=== PATIENT | male | born 1995 | race Caucasian/White ===

== ENCOUNTER 2017-09-13 17:07 | Emergency (ER) | payer SELFPAY ==
[2017-09-13 17:22] VITALS: TEMP 98.3
--- NOTE | 2017-09-13 18:03 | ED.PDOC ---
History of Present Illness - General Chief Complaint: General Stated Complaint: R shoulder discomfort Time Seen by Provider: 09/13/17 18:03 Source: patient Exam Limitations: no limitations - History of Present Illness Initial Comments: leonie Shukla 21 y/o male stated that he had been having achy right shoulder and right side of his neck since yesterday which comes and goes presently not hurting here in er.Denies history of trauma or old injury to involved area. Occurred: yesterday Pain - Upper Extremity: moderate: Shoulder, right Method of Injury: unknown Improving Factors: rest Worsening Factors: movement Allergies/Adverse Reactions: Allergies NO KNOWN ALLERGY Allergy (Verified 07/23/16 02:15) Home Medications: Ambulatory Orders NK [NK] 09/13/17 Review of Systems - Review of Systems Constitutional: States: no symptoms reported EENTM: States: no symptoms reported Respiratory: States: no symptoms reported Cardiology: States: no symptoms reported Musculoskeletal: States: see HPI Past Medical History (General) - Patient Medical History Hx Stroke: No Hx Congestive Heart Failure: No Hx Diabetes: No Surgical History: no surgical history - Vaccination History Hx Tetanus, Diphtheria Vaccination: No Hx Influenza Vaccination: No Hx Pneumococcal Vaccination: No - Social History Hx Tobacco Use: Yes Hx Alcohol Use: Yes - occasionally Hx Substance Use: No Family Medical History - Family History Mother Family History: No Known Living Status: Still Living Physical Exam - Physical Exam General Appearance: Alert, Comfortable, No apparent distress Eyes, Ears, Nose, Throat Exam: PERRL/EOMI, normal ENT inspection, pharynx normal Neck: non-tender, full range of motion, supple, other - no carotid bruits noted Cardiovascular/Respiratory: regular rate, rhythm, normal peripheral pulses Abdominal Exam: non-tender, no organomegaly Back Exam: no CVA tenderness, no vertebral tenderness Shoulder Exam: normal inspection, non-tender, no evidence of injury, normal ROM Elbow/Forearm Exam: no evidence of injury Wrist Exam: non-tender Hand Exam: no evidence of injury Neuro/Tendon: normal sensation, normal motor functions Mental Status: alert, oriented x 3 Skin Exam: normal color, warm/dry Progress - Progress Progress: 09/13/17 18:21 Vital Signs - 8 hr 09/13/17 17:20 Temperature 98.3 F Pulse Rate [ 90 Right Radial] Respiratory 20 Rate Blood Pressure 129/101 [Left Arm] O2 Sat by Pulse 99 Oximetry - EKG/XRAY/CT XRAY: c-spine - no acute abnormalities noted Xray Comments: right shoulder -nothing acute Departure - Departure Clinical Impression: Neck pain on right side Shoulder pain, right Qualifiers: Chronicity: unspecified Qualified Code(s): M25.511 - Pain in right shoulder Time of Disposition: 18:52 Disposition: Discharge to Home or Self Care Condition: Good Departure Forms: ED Discharge - Pt. Copy, Patient Portal Self Enrollment Instructions: DI for Shoulder Pain, DI for Neck Pain Referrals: Rafaela Taylor NP [Primary Care Provider] - 1-2 Weeks Home Medications: Ambulatory Orders NK [NK] 09/13/17 Additional Instructions: May take over the counter Aleve 1-2 tablets am/pm for pain follow up with primary md 09/16/2017 call for appointment
--- NOTE | 2017-09-13 18:27 | RAD ---
EXAM: Cervical Spine,3 Views CLINICAL INDICATION: 21-year-old male with neck an shoulder discomfort. TECHNIQUE: Three views of the cervical spine were obtained in AP, lateral, and odontoid projections. COMPARISON: None. FINDINGS: The dens is not well seen secondary to overlapping dental structures. The cervical spine is visualized to the top of C7. Alignment of the cervical spine is within normal limits. There is no subluxation or fracture deformity. Morphology of the vertebral bodies and intervertebral disc spaces is within normal limits. The prevertebral soft tissues are within normal limits. The airway is patent. Limited visualization of the lung apices is within normal limits. The remainder of the visualized bones are within normal limits. IMPRESSION: No acute radiographic abnormality. If patient's pain persists, repeat radiographs in 7 to 10 days or MRI cervical spine may be considered as clinically indicated. Electronically signed by: Daniella Mon MD 09/13/2017 6:25 PM CDT Workstation: [id number]
--- NOTE | 2017-09-13 18:27 | RAD ---
EXAM: Shoulder,Right 2 or More Views CLINICAL INDICATION: 21-year-old male with shoulder discomfort. TECHNIQUE: Two views RIGHT shoulder were obtained in AP, internal/external rotation projections. COMPARISON: None. FINDINGS: There is no fracture or dislocation. The joint spaces are preserved. No soft tissue abnormalities are seen. IMPRESSION: No acute radiographic abnormality. Electronically signed by: Daniella Mon MD 09/13/2017 6:26 PM CDT Workstation: [id number]
[2017-09-13] MEDS ORDERED: ORPHENADRINE CITRATE 30 MG/ML AMP IM ONE (18:50)
[2017-09-13] MEDS ORDERED: KETOROLAC TROMETHAMINE INJ 30 MG/ML VIAL IM ONE (18:50)
[2017-09-13 19:20] VITALS: BP 118/78; O2SAT 98
== END 2017-09-13 19:20 | disposition home or self-care (01) ==
LOC: ER 17:07
DX: M25.511 Pain in right shoulder (principal); M54.2 Cervicalgia; Z87.891 Personal history of nicotine dependence
CPT/HCPCS: 72040; 73030; J1885; J2360

== ENCOUNTER 2017-12-04 21:22 | Emergency (ER) | payer SELFPAY ==
--- NOTE | 2017-12-04 22:02 | ED.PDOC ---
History of Present Illness - General Chief Complaint: Back Pain or Injury Stated Complaint: fall with back and abd pain Time Seen by Provider: 12/04/17 21:32 Source: patient Exam Limitations: no limitations - History of Present Illness Initial Comments: Tom Shukla 21 y/o male stated he fell off a 6 foot ladder yesterday afternoon 12/03/17 landed on his back on top of a riding mower has upper back and shoulder pain left side one hour after incident as well as soreness left forearm.Denies head /hip chest injuries or pain.He stated pet dog was trying to climb ladder then wobbled and made the ladder collapsed while installing a camera on their neighbors house Occurred: yesterday Severity: moderate Injuries/Pain Location: upper extremity Reason for Fall: other - see hpi Improving Factors: rest Worsening Factors: movement Associated Symptoms (Fall): denies symptoms Allergies/Adverse Reactions: Allergies NO KNOWN ALLERGY Allergy (Verified 12/04/17 21:37) Home Medications: Ambulatory Orders NK [NK] 09/13/17 Review of Systems - Review of Systems Constitutional: States: no symptoms reported EENTM: States: no symptoms reported Respiratory: States: no symptoms reported Cardiology: States: no symptoms reported Genitourinary: States: no symptoms reported Musculoskeletal: States: see HPI Neurological: States: no symptoms reported All other Systems: Reviewed and Negative, No Change from Baseline Past Medical History (General) - Patient Medical History Hx Seizures: No Hx Stroke: No Hx Congestive Heart Failure: No Hx Hypertension: No Hx Diabetes: No Hx Cancer: No Hx MRSA: No Surgical History: no surgical history - Vaccination History Hx Tetanus, Diphtheria Vaccination: Yes Hx Influenza Vaccination: No Hx Pneumococcal Vaccination: No Immunizations Up to Date: Yes - Social History Hx Tobacco Use: Yes Hx Alcohol Use: No Hx Substance Use: Yes - marijauna, meth Hx Physical Abuse: No Hx Emotional Abuse: No Hx Suspected Abuse: No Physical Exam - Physical Exam General Appearance: Alert, Comfortable, No apparent distress Head Injury: no evidence of injury Eye Exam: bilateral normal ENT Exam: hearing grossly normal, no evidence of ENT injury, no dental injury Peripheral Pulses: radial,right: 2+, radial,left: 2+ Cardiovascular/Respiratory: regular rate, rhythm, no M/R/G, normal peripheral pulses, no respiratory distress Gastrointestinal/Abdominal: normal bowel sounds, non tender, soft, no organomegaly Neurologic: no motor/sensory deficits, alert, normal mood/affect, oriented x 3, other - romberg negative ,no nystagmus Skin Exam: normal color, warm/dry - [place] Coma Score Best Eye Response ([place]): (4) open spontaneously Best Verbal Response ([place]): (5) oriented Best Motor Response ([place]): (6) obeys commands [place] Total: 15 Progress - Progress Progress: 12/04/17 22:07 Last Vital Signs Temp 97 F L 12/04/17 21:36 Pulse 76 12/04/17 21:36 Resp 18 12/04/17 21:36 BP 134/87 12/04/17 21:36 Pulse Ox 96 12/04/17 21:36 - EKG/XRAY/CT XRAY: no fractures noted c-spine,left shoulder forearm Departure - Departure Clinical Impression: Pain, upper back Fall from ladder Qualifiers: Encounter type: initial encounter Qualified Code(s): W11.XXXA - Fall on and from ladder, initial encounter Contusion of upper back Qualifiers: Encounter type: initial encounter Laterality: left Qualified Code(s): S20.222A - Contusion of left back wall of thorax, initial encounter Time of Disposition: 22:57 Disposition: Discharge to Home or Self Care Departure Forms: ED Discharge - Pt. Copy, Patient Portal Self Enrollment Instructions: Contusion, DI for Low Back Pain, DI for Contusion Referrals: Rafaela Taylor NP [Primary Care Provider] - 1-2 Weeks Home Medications: Ambulatory Orders NK [NK] 09/13/17 Additional Instructions: May take over the counter ALEVE 1-2 tablets am/pm for pain as needed
--- NOTE | 2017-12-04 22:45 | RAD ---
PROCEDURE: Cervical Spine,5 Views Clinical History: pain/fall Indication: Same as above Comparison: None . Technique: 5.0 views of the cervical spine were done. Findings: There is no loss of vertebral body height. The intervertebral disc spaces are well-maintained. Relative straightening of the normal cervical lordosis may be due to patient positioning, muscular spasm or ligamentous injury. The prevertebral soft tissues appear unremarkable. The bone mineralization is normal for patient's age and sex. The posterior elements are normal. The craniovertebral junction, tip of the odontoid process, C1/C2 alignment and the C7/T1 interface is intact. The laryngotracheal airway is widely patent. The adjacent soft tissues are radiographically unremarkable. There is no visualization of any radiopaque foreign bodies in the soft tissues. Impression: Negative for acute cervical bony trauma Relative straightening of the normal cervical lordosis may be due to patient positioning, muscular spasm or ligamentous injury. Electronically signed by: Redd Jaimes MD 12/04/2017 10:43 PM [facility] Workstation: [email or web address]
--- NOTE | 2017-12-04 22:46 | RAD ---
EXAM DESCRIPTION: X-RAY left Forearm CLINICAL HISTORY: Left forearm pain and trauma COMPARISON: None TECHNIQUE: 2.0 views of the left forearm. FINDINGS: There is no evidence of fractures or dislocations involving the bones of the left forearm. Limited evaluation of the [adjacent] elbow joint and [adjacent] wrist joint does not show any gross acute bony abnormality. There are no focal bony lesions or periosteal reactions in the left radius and ulna. The adjacent soft tissues are unremarkable. There is no visualization of any radiopaque foreign bodies. IMPRESSION: Negative for acute bony findings in the left forearm. Electronically signed by: Redd Jaimes MD 12/04/2017 10:44 PM [facility] Workstation: [id number]
--- NOTE | 2017-12-04 22:47 | RAD ---
PROCEDURE: Shoulder, left 2 or More Views Clinical History: pain/fall Indication: Same as above Comparison: None . Technique: 2.0 views of the left shoulder were done. Findings: There is no visualization of acute fractures or dislocations involving the bones of the left shoulder joint. There is no evidence of periosteal reactions involving the bones of the shoulder joint. The adjacent acromioclavicular joint shows no significant degenerative change. The acromiohumeral distance is well-maintained . There is no evidence of rotator cuff calcific tendinitis. The visualized adjacent ribs do not show any evidence of acute bony trauma. Limited evaluation of the adjacent clavicle, scapula and the acromioclavicular joint does not show any evidence of acute bony trauma. The visualized lung casper are radiographically unremarkable. The adjacent soft tissues are radiographically unremarkable. There is no visualization of any radiopaque foreign bodies in the soft tissues. Impression: Negative for acute bony trauma involving the left shoulder joint. . Place of interpretation: [id number]. Electronically signed by: Redd Jaimes MD 12/04/2017 10:45 PM [facility] Workstation: [email or web address]
[2017-12-04] MEDS ORDERED: METHOCARBAMOL 750 MG TAB PO ONE (22:58)
[2017-12-04] MEDS ORDERED: IBUPROFEN 200 MG TAB PO ONE (22:58)
[2017-12-04 23:30] VITALS: BP 123/85; TEMP 98.5; O2SAT 99
== END 2017-12-04 23:31 | disposition home or self-care (01) ==
LOC: ER 21:22
DX: S20.222A Contusion of left back wall of thorax, initial encounter (principal); W11.XXXA Fall on and from ladder, initial encounter; Y92.89 Other specified places as the place of occurrence of the external cause

== ENCOUNTER 2019-10-31 05:24 | Emergency (ER) | payer SELFPAY ==
[2019-10-31] MEDS ORDERED: SODIUM CHLORIDE 0.9% (FLUSH) 10 ML SYG IV PRN (06:24)
[2019-10-31] MEDS ORDERED: SODIUM CHLORIDE 0.9% 1000ML 1,000 ML IVS ONE (06:37)
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
--- NOTE | 2019-10-31 06:48 | RAD ---
EXAM DESCRIPTION: Chest,1 View CLINICAL HISTORY: med-psych clearance COMPARISON: 02/01/2014 FINDINGS: Single frontal view of the chest. Cardiomediastinal silhouette: Normal size and contour. Lungs: No consolidation, pneumothorax, or pleural effusion. Bones: No acute osseous abnormality. Upper abdomen: No abnormality identified. IMPRESSION: 1. No acute pulmonary process identified. Electronically signed by: Mckay Samuels 10/31/2019 6:47 AM [facility]
[2019-10-31] MEDS ORDERED: ALPRAZolam 0.25 MG TAB PO ONE (07:33)
[2019-10-31 09:27] VITALS: BP 148/88; TEMP 98.2; O2SAT 97
== END 2019-10-31 09:29 | disposition home or self-care (01) ==
LOC: ER 05:24
DX: R45.851 Suicidal ideations (principal); F15.10 Other stimulant abuse, uncomplicated; F12.10 Cannabis abuse, uncomplicated; F32.9 Major depressive disorder, single episode, unspecified; R00.0 Tachycardia, unspecified; Z91.5 Personal history of self-harm; Z87.891 Personal history of nicotine dependence
CPT/HCPCS: 36415; 71045; 80048; 80076; 80307; 80320; 80329; 81001; 82550; 85025; 93005; J7030

== ENCOUNTER 2019-12-22 18:15 | Emergency (ER) | payer SELFPAY ==
[2019-12-22] MEDS ORDERED: LIDOCAINE 1% W/ EPINEPHRINE 20 ML VIAL INJ ONE (18:17)
[2019-12-22 18:20] VITALS: TEMP 99.5; O2SAT 98
[2019-12-22] MEDS ORDERED: TETANUS,DIPHTHERIA,PERTUSSIS 1 EA SYG IM ONE (18:46)
[2019-12-22] MEDS ORDERED: SULFA/TRIMETH 800/160 (DS) TAB 1 EA TAB PO ONE (18:46)
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
[2019-12-22] MEDS ORDERED: NEOMYCIN-BACITRACIN-POLYMYXIN 0.9 GM UD TOP ONE (18:56)
[2019-12-22 19:04] VITALS: BP 149/92
== END 2019-12-22 19:05 | disposition home or self-care (01) ==
LOC: ER 18:15
DX: S81.811A Laceration without foreign body, right lower leg, initial encounter (principal); F32.9 Major depressive disorder, single episode, unspecified; Z87.891 Personal history of nicotine dependence; W26.0XXA Contact with knife, initial encounter; Y93.89 Activity, other specified; Y92.9 Unspecified place or not applicable